=== PATIENT | male | born 1950 | race Caucasian/White ===

== ENCOUNTER 2019-08-30 00:28 | Emergency (ER) | payer MEDICARE ==
[2019-08-30] MEDS ORDERED: Ketorolac 30 MG/ML SDV IVPUSH ONE (00:52)
[2019-08-30] MEDS ORDERED: Sodium Chloride 0.9% 1,000 ML IV SCH (01:00)
[2019-08-30] MEDS ORDERED: Albuterol/Ipratropium 3.0-0.5 MG/3 ML Neb Soln NEB ONE (01:03)
--- NOTE | 2019-08-30 01:07 | EDM.PDOC ---
ED HPI GENERAL MEDICAL PROBLEM - General Chief Complaint: Chest Pain Stated Complaint: SNELLING AMBULANCE Time Seen by Provider: 08/30/19 00:39 Source of Information: Reports: Patient History Limitations: Reports: No Limitations - History of Present Illness INITIAL COMMENTS - FREE TEXT/NARRATIVE: This is a 68-year-old male. He awoke this morning early and when he took a deep breath he had sharp pain in his left chest. The deeper he would breathe seem like the worst it hurt. He was thinking he had a heart attack so he called the ambulance and was brought to the ER. He says since he got on the ambulance it is, eased up considerably but he still gets sharp pain at the very end of deep respirations. Denies any fever or chills. He did take 2 aspirin at home since he was thinking he might be having a heart attack. He has no history of cardiac disease. With this sharp chest pain he had no sweating no nausea and vomiting no shortness of breath and the pain is not radiated into his neck or his arm and stayed directly in the left anterior chest. He has been moving cattle recently but he denies having strained or stressed his chest wall. Recent swelling or redness of his legs. Chest Pain Score (Numeric/FACES): 5 - Related Data Allergies Allergy/AdvReac Type Severity Reaction Status Date / Time No Known Allergies Allergy Verified 08/30/19 00:38 Home Meds: Home Meds Albuterol [Proventil Neb Soln] 2.5 mg IH QID PRN 06/04/18 [History] Budesonide/Formoterol [Symbicort 160-4.5 MCG] 2 puff INH BID 06/04/18 [History] Montelukast [Singulair] 10 mg PO DAILY 06/04/18 [History] predniSONE 20 mg PO DAILY 08/30/19 [History] ED ROS GENERAL - Review of Systems Review Of Systems: See Below Constitutional: Denies: Fever, Chills HEENT: Reports: No Symptoms Respiratory: Reports: Shortness of Breath. Denies: Wheezing, Cough Cardiovascular: Reports: Chest Pain. Denies: Edema Endocrine: Reports: No Symptoms GI/Abdominal: Denies: Abdominal Pain, Diarrhea, Nausea, Vomiting : Reports: No Symptoms Musculoskeletal: Reports: No Symptoms Skin: Reports: No Symptoms Neurological: Reports: No Symptoms Psychiatric: Reports: No Symptoms Hematologic/Lymphatic: Reports: No Symptoms ED EXAM, GENERAL - Physical Exam Exam: See Below Exam Limited By: No Limitations General Appearance: Alert, WD/WN, No Apparent Distress Eye Exam: Bilateral Eye: Normal Inspection Ears: Normal External Exam Nose: Normal Inspection Throat/Mouth: Normal Inspection, Normal Lips, Normal Voice, No Airway Compromise Head: Normocephalic Neck: Supple Respiratory/Chest: No Respiratory Distress, Lungs Clear, Normal Breath Sounds, Other (Patient of his left anterior chest I cannot reproduce his sharp pain but I can put my finger which is just underneath his nipple on that left side where he describes the sharp pain when he breathes deep) Cardiovascular: Regular Rate, Rhythm, No Murmur GI/Abdominal: Soft, Non-Tender Back Exam: Full Range of Motion Extremities: Normal Inspection, Normal Range of Motion Neurological: Alert, Oriented Psychiatric: Normal Affect, Normal Mood Skin Exam: Warm, Dry EKG INTERPRETATION EKG Date: 08/30/19 Time: 00:35 EKG Interpretation Comments: EKG shows a normal sinus rhythm rate of 81, he does have a right bundle branch block noted but I do not see any acute ST or T wave changes or obvious ischemia Course - Vital Signs Last Recorded V/S: Last Vital Signs Temp 98.6 F 08/30/19 00:34 Pulse 86 08/30/19 00:34 Resp 16 08/30/19 00:34 BP 156/103 H 08/30/19 00:34 Pulse Ox 96 08/30/19 01:18 - Orders/Labs/Meds Orders: Active Orders 24 hr Category Date Time Status EKG 12 Lead [EKG Documentation Completion] [RC] STAT Care 08/30/19 00:46 Active RT Aerosol Therapy [RC] ASDIRECTED Care 08/30/19 01:03 Active Chest 2V [CR] Stat Exams 08/30/19 00:46 Taken Sodium Chloride 0.9% [Normal Saline] 1,000 ml Med 08/30/19 01:00 Active IV ASDIRECTED Medication Orders Sodium Chloride (Normal Saline) 1,000 mls @ 500 mls/hr IV ASDIRECTED MARLENA Last Admin: 08/30/19 01:17 Dose: 500 mls/hr Labs: Laboratory Tests 08/30/19 08/30/19 08/30/19 Range/Units 01:15 01:15 01:15 WBC 8.12 (4.23-9.07) K/mm3 RBC 4.69 (4.63-6.08) M/mm3 Hgb 13.5 L (13.7-17.5) gm/dl Hct 41.4 (40.1-51.0) % MCV 88.3 (79.0-92.2) fl MCH 28.8 (25.7-32.2) pg MCHC 32.6 (32.2-35.5) g/dl RDW Std Deviation 44.0 H (35.1-43.9) fL Plt Count 311 (163-337) K/mm3 MPV 9.9 (9.4-12.3) fl Neut % (Auto) 53.7 (34.0-67.9) % Lymph % (Auto) 28.8 (21.8-53.1) % [place] % (Auto) 15.5 H (5.3-12.2) % Eos % (Auto) 1.6 (0.8-7.0) Baso % (Auto) 0.2 (0.1-1.2) % Neut # (Auto) 4.35 (1.78-5.38) K/mm3 Lymph # (Auto) 2.34 (1.32-3.57) K/mm3 [place] # (Auto) 1.26 H (0.30-0.82) K/mm3 Eos # (Auto) 0.13 (0.04-0.54) K/mm3 Baso # (Auto) 0.02 (0.01-0.08) K/mm3 Manual Slide Review Abnormal smear D-Dimer, Quantitative 0.47 (0.19-0.50) mg/L Sodium 142 (136-145) mEq/L Potassium 4.5 (3.5-5.1) mEq/L Chloride 100 (98-107) mEq/L Carbon Dioxide 33 H (21-32) mEq/L Anion Gap 13.5 (5-15) BUN 20 H (7-18) mg/dL Creatinine 1.2 (0.7-1.3) mg/dL Est Cr Clr Drug Dosing 57.79 mL/min Estimated GFR (MDRD) > 60 (>60) mL/min BUN/Creatinine Ratio 16.7 (14-18) Glucose 402 H (80-115) mg/dL Calcium 9.5 (8.5-10.1) mg/dL Total Bilirubin 0.4 (0.2-1.0) mg/dL AST 24 (15-37) U/L ALT 50 (16-63) U/L Alkaline Phosphatase 71 (46-116) U/L Troponin I < 0.017 (0.00-0.056) ng/mL Total Protein 7.4 (6.4-8.2) g/dl Albumin 3.4 (3.4-5.0) g/dl Globulin 4.0 gm/dL Albumin/Globulin Ratio 0.9 L (1-2) 08/30/19 Range/Units 03:20 WBC (4.23-9.07) K/mm3 RBC (4.63-6.08) M/mm3 Hgb (13.7-17.5) gm/dl Hct (40.1-51.0) % MCV (79.0-92.2) fl MCH (25.7-32.2) pg MCHC (32.2-35.5) g/dl RDW Std Deviation (35.1-43.9) fL Plt Count (163-337) K/mm3 MPV (9.4-12.3) fl Neut % (Auto) (34.0-67.9) % Lymph % (Auto) (21.8-53.1) % [place] % (Auto) (5.3-12.2) % Eos % (Auto) (0.8-7.0) Baso % (Auto) (0.1-1.2) % Neut # (Auto) (1.78-5.38) K/mm3 Lymph # (Auto) (1.32-3.57) K/mm3 [place] # (Auto) (0.30-0.82) K/mm3 Eos # (Auto) (0.04-0.54) K/mm3 Baso # (Auto) (0.01-0.08) K/mm3 Manual Slide Review D-Dimer, Quantitative (0.19-0.50) mg/L Sodium (136-145) mEq/L Potassium (3.5-5.1) mEq/L Chloride (98-107) mEq/L Carbon Dioxide (21-32) mEq/L Anion Gap (5-15) BUN (7-18) mg/dL Creatinine (0.7-1.3) mg/dL Est Cr Clr Drug Dosing mL/min Estimated GFR (MDRD) (>60) mL/min BUN/Creatinine Ratio (14-18) Glucose (80-115) mg/dL Calcium (8.5-10.1) mg/dL Total Bilirubin (0.2-1.0) mg/dL AST (15-37) U/L ALT (16-63) U/L Alkaline Phosphatase (46-116) U/L Troponin I < 0.017 (0.00-0.056) ng/mL Total Protein (6.4-8.2) g/dl Albumin (3.4-5.0) g/dl Globulin gm/dL Albumin/Globulin Ratio (1-2) Meds: Medications Generic Name Dose Route Start Last Admin Trade Name Freq PRN Reason Stop Dose Admin Sodium Chloride 1,000 mls @ 500 mls/hr 08/30/19 01:00 08/30/19 01:17 Normal Saline IV 500 mls/hr ASDIRECTED MARLENA Administration Discontinued Medications Generic Name Dose Route Start Last Admin Trade Name Freq PRN Reason Stop Dose Admin Albuterol/Ipratropium 3 ml 08/30/19 01:03 08/30/19 01:13 Duoneb 3.0-0.5 Mg/3 Ml NEB 08/30/19 01:04 3 ml ONETIME ONE Administration Ketorolac Tromethamine 30 mg 08/30/19 00:52 08/30/19 01:17 Toradol IVPUSH 08/30/19 00:53 30 mg ONETIME ONE Administration - Radiology Interpretation Free Text/Narrative:: Straight does not show any acute findings. There is a shadow in the left hilum but I am not sure what it represents but I do not believe it is anything acute his aortic knob is visualized and he does not have a widened mediastinum - Re-Assessments/Exams Free Text/Narrative Re-Assessment/Exam: 08/30/19 04:02 Spoke to the patient regarding his lab work and the 2 troponins that were normal. He states that since he has been sleeping that sharp pain has resolved and he does not have it anymore. I encouraged him to follow-up with his family doctor if any further recurrence of the sharp pain. I also went over the fact that a checked him for a pulmonary embolus and it was negative. Departure - Departure Time of Disposition: 04:03 Disposition: Home, Self-Care 01 Condition: Good Clinical Impression: Pleuritic chest pain Instructions: Chest Wall Pain Referrals: Ronaldo Mcbride Jr, MD [Primary Care Provider] - Forms: ED Department Discharge Additional Instructions: Continue with normal but nonstrenuous activity for the next 48 hours, follow-up with your family doctor this coming week for recheck, see your family doctor sooner if you start having the sharp chest pain again, return to the ER if needed Sepsis Event Note - Evaluation Sepsis Screening Result: No Definite Risk - Focused Exam Vital Signs: Vital Signs Temp Pulse Resp BP Pulse Ox Pulse Ox 08/30/19 01:18 96 08/30/19 00:34 98.6 F 86 16 156/103 H 97 Date Exam was Performed: 08/30/19 Time Exam was Performed: 04:02 - My Orders Last 24 Hours: My Active Orders 08/30/19 00:46 EKG 12 Lead [EKG Documentation Completion] [RC] STAT Chest 2V [CR] Stat 08/30/19 01:00 Sodium Chloride 0.9% [Normal Saline] 1,000 ml IV ASDIRECTED 08/30/19 01:03 RT Aerosol Therapy [RC] ASDIRECTED - Assessment/Plan Last 24 Hours: My Active Orders 08/30/19 00:46 EKG 12 Lead [EKG Documentation Completion] [RC] STAT Chest 2V [CR] Stat 08/30/19 01:00 Sodium Chloride 0.9% [Normal Saline] 1,000 ml IV ASDIRECTED 08/30/19 01:03 RT Aerosol Therapy [RC] ASDIRECTED
--- NOTE | 2019-08-31 09:17 | CR ---
Chest: Two views of the chest were obtained. Comparison: No prior chest imaging is available. Heart size and mediastinum are normal. Lungs are hyperinflated compatible with emphysematous change. No acute parenchymal type change is seen. Bony structures are within normal limits for the patient's age. Impression: 1. Emphysematous change. 2. Nothing acute is suspected on two-view chest x-ray. Diagnostic code #2 This report was dictated in [place] Standard Time
== END 2019-08-30 05:55 | disposition home or self-care (01) ==
LOC: JD.ED 00:28 → SUPCPDRO 00:28 → JD.ED 05:55
DX: R07.81 Pleurodynia (principal); J43.9 Emphysema, unspecified; Z79.899 Other long term (current) drug therapy; Z79.51 Long term (current) use of inhaled steroids; Z79.52 Long term (current) use of systemic steroids
CPT/HCPCS: 36415; 71046; 71046-26; 80053; 84484; 85025; 85379; 93005; 94640; 96361; 96374; 99285-25; J1885; J7030; J7620-GY

== ENCOUNTER 2025-03-08 17:34 | Inpatient (IN) | payer MEDICARE, OTHER ==
[2025-03-08] MEDS: Ondansetron 4 MG/2 ML SDV IVPUSH ONE (17:54)
[2025-03-08] MEDS: Sodium Chloride 0.9% 10 ML Syringe FLUSH PRN (17:54)
[2025-03-08] MEDS: methylPREDNISolone Sodium Succinate 125 MG/2 ML SDV IVPUSH ONE (17:54)
[2025-03-08 17:55] LABS: BASOPHILS ABSOLUTE AUTO 0.1 K/mm3 (0.0-0.2); BASOPHILS PERCENT AUTO 0.7 % (0.0-1.0); EOSINOPHILS ABSOLUTE AUTO 0.2 K/mm3 (0.0-0.4); EOSINOPHILS PERCENT AUTO 1.7 % (0.0-6.0); IMMATURE GRAN ABSOLUTE AUTO 0.03 K/mm3 (0.00-0.05); IMMATURE GRAN PERCENT AUTO 0.3 % (0.0-0.4); LYMPHOCYTES ABSOLUTE AUTO 2.6 K/mm3 (1.0-4.8); LYMPHOCYTES PERCENT AUTO 30.3 % (24.0-44.0); MEAN PLATELET VOLUME 10.5 fl (9.4-12.4); MONOCYTES ABSOLUTE AUTO 1.1 K/mm3 (0.0-0.8); MONOCYTES PERCENT AUTO 12.6 % (0.0-8.0); NEUTROPHILS ABSOLUTE AUTO 4.7 K/mm3 (1.8-7.7); NEUTROPHILS PERCENT AUTO 54.4 % (41.0-71.0); NRBC ABSOLUTE 0.00 (0.00-0.02); NRBC PERCENT 0.0 % (0.0-0.2); PLATELET COUNT,PLT 248 K/mm3 (150-400); RED BLOOD CELL COUNT 4.43 M/mm3 (4.52-5.90); WHITE BLOOD CELL COUNT,WBC 8.64 K/mm3 (3.9-11.3)
[2025-03-08 18:28] LABS: A/G RATIO 0.8 (1-2); ALANINE AMINOTRANSFERASE,ALT 31.0 U/L (16-63); ASPARTATE AMNIOTRANSFERASE,AST 25.0 U/L (15-37); BILIRUBIN TOTAL 0.6 mg/dL (0.2-1.0); BLOOD UREA NITROGEN,BUN 24.0 mg/dL (7-18); CARBON DIOXIDE,CO2 33.0 mEq/L (21-32); CHLORIDE,CL 101.0 mEq/L (98-107); CREATININE 1.4 mg/dL (0.7-1.3); EST CRCL DRUG DOSING (CG) 48.52 mL/min; ESTIMATED GFR 53.0 mL/min (>60); GLUCOSE RANDOM 167.0 mg/dL (70-99); POTASSIUM,K 4.9 mEq/L (3.5-5.1); PROTEIN TOTAL,TP 7.7 g/dl (6.4-8.2); SODIUM,NA 143.0 mEq/L (136-145)
[2025-03-08 18:30] LABS: TROPONIN I HIGH SENSITIVITY 730.0 pg/mL (<=76)
[2025-03-08 18:35] LABS: INR 1.08
[2025-03-08 18:37] LABS: PTT,PARTIAL THROMBOPLSTIN TIME 24.9 SECONDS (21.7-31.4)
[2025-03-08] MEDS ORDERED: Iopamidol 612 MG/ML 100 ML Bottle IVPUSH ONE (19:00)
[2025-03-08] MEDS ORDERED: Iopamidol 612 MG/ML 30 ML SDV IVPUSH ONE (19:00)
[2025-03-08] MEDS: diphenhydrAMINE 50 MG/ML SDV IVPUSH ONE (19:15)
[2025-03-08 21:00] LABS: PCO2 ARTERIAL 72.0 mmHg (35.0-45.0); PO2 ARTERIAL 104.0 mmHg (80.0-100.0)
[2025-03-08 21:01] LABS: BASE EXCESS ARTERIAL 7.8 (-2-2.0); BICARBONATE,ARTERIAL 36.3 meq/L (22.0-26.0); O2 SATURATION ARTERIAL 98.6 % (96.0-97.0)
[2025-03-08] MEDS: Iopamidol 755 Mg/ML 100 ML Bottle IVPUSH ONE (23:21)
[2025-03-09 06:59] LABS: BASE EXCESS ARTERIAL 6.8 (-2-2.0); BICARBONATE,ARTERIAL 35.6 meq/L (22.0-26.0); O2 SATURATION ARTERIAL 98.7 % (96.0-97.0); PCO2 ARTERIAL 74.0 mmHg (35.0-45.0); PO2 ARTERIAL 111.0 mmHg (80.0-100.0)
[2025-03-09 08:15] LABS: BASOPHILS ABSOLUTE AUTO 0.0 K/mm3 (0.0-0.2); BASOPHILS PERCENT AUTO 0.0 % (0.0-1.0); EOSINOPHILS ABSOLUTE AUTO 0.0 K/mm3 (0.0-0.4); EOSINOPHILS PERCENT AUTO 0.0 % (0.0-6.0); IMMATURE GRAN ABSOLUTE AUTO 0.02 K/mm3 (0.00-0.05); IMMATURE GRAN PERCENT AUTO 0.5 % (0.0-0.4); LYMPHOCYTES ABSOLUTE AUTO 0.6 K/mm3 (1.0-4.8); LYMPHOCYTES PERCENT AUTO 14.0 % (24.0-44.0); MEAN PLATELET VOLUME 10.2 fl (9.4-12.4); MONOCYTES ABSOLUTE AUTO 0.2 K/mm3 (0.0-0.8); MONOCYTES PERCENT AUTO 4.7 % (0.0-8.0); NEUTROPHILS ABSOLUTE AUTO 3.2 K/mm3 (1.8-7.7); NEUTROPHILS PERCENT AUTO 80.8 % (41.0-71.0); NRBC ABSOLUTE 0.00 (0.00-0.02); NRBC PERCENT 0.0 % (0.0-0.2); PLATELET COUNT,PLT 211 K/mm3 (150-400); RED BLOOD CELL COUNT 4.08 M/mm3 (4.52-5.90); WHITE BLOOD CELL COUNT,WBC 4.01 K/mm3 (3.9-11.3)
[2025-03-09 08:38] LABS: A/G RATIO 0.7 (1-2); ALANINE AMINOTRANSFERASE,ALT 27.0 U/L (16-63); ASPARTATE AMNIOTRANSFERASE,AST 20.0 U/L (15-37); BILIRUBIN TOTAL 0.6 mg/dL (0.2-1.0); BLOOD UREA NITROGEN,BUN 23.0 mg/dL (7-18); CARBON DIOXIDE,CO2 37.0 mEq/L (21-32); CHLORIDE,CL 100.0 mEq/L (98-107); CREATININE 1.0 mg/dL (0.7-1.3); EST CRCL DRUG DOSING (CG) 67.93 mL/min; ESTIMATED GFR 79.0 mL/min (>60); GLUCOSE RANDOM 184.0 mg/dL (70-99); PHOSPHORUS 4.9 mg/dL (2.6-4.7); POTASSIUM,K 5.4 mEq/L (3.5-5.1); PROTEIN TOTAL,TP 7.3 g/dl (6.4-8.2); SODIUM,NA 141.0 mEq/L (136-145)
[2025-03-09 08:44] LABS: TROPONIN I HIGH SENSITIVITY 318.0 pg/mL (<=76)
[2025-03-09 09:42] LABS: BASE EXCESS ARTERIAL 5.6 (-2-2.0); BICARBONATE,ARTERIAL 33.7 meq/L (22.0-26.0); O2 SATURATION ARTERIAL 97.6 % (96.0-97.0); PCO2 ARTERIAL 67.0 mmHg (35.0-45.0); PO2 ARTERIAL 104.0 mmHg (80.0-100.0)
[2025-03-09] MEDS ORDERED: 50% Dextrose in Water 50 ML Syringe IVPUSH PRN (14:50)
[2025-03-09] MEDS ORDERED: LORazepam 2 MG/ML SDV IVPUSH PRN (14:51)
[2025-03-09] MEDS ORDERED: Sennosides/Docusate Sodium 50-8.6 MG Tab PO PRN (14:57)
[2025-03-09] MEDS: Furosemide 40 MG/4 ML VIAL IVPUSH ONE (15:34)
[2025-03-09] MEDS: methylPREDNISolone Sodium Succinate 125 MG/2 ML SDV IVPUSH SCH (15:34)
[2025-03-09] MEDS: Calcium Gluconate 10% 1 GM/10 ML SDV IVPUSH ONE (15:34)
[2025-03-09] MEDS: Magnesium Sulfat/D5W 1GM/100ML 1 GM in Premix Bag 1 BAG IV ONE (15:35)
[2025-03-09] MEDS: Insulin Regular, Human 100 Units/ML 10 ML Vial IV ONE (15:50)
[2025-03-09] MEDS: 50% Dextrose in Water 50 ML Syringe IVPUSH ONE (15:50)
[2025-03-09] MEDS: Tiotropium BR/Olodaterol HCL 4 GM Inhalation Spray 2.5mcg/1 dose; 10 doses INH SCH (16:06)
[2025-03-09] MEDS: Ondansetron 4 MG Tab.DIS PO PRN (16:18)
[2025-03-09] MEDS: Insulin Lispro 100 Unit/ML 3 ML KwikPen SUBCUT SCH (17:16)
[2025-03-10 05:20] LABS: BLOOD UREA NITROGEN,BUN 29.0 mg/dL (7-18); CARBON DIOXIDE,CO2 39.0 mEq/L (21-32); CHLORIDE,CL 98.0 mEq/L (98-107); CREATININE 1.1 mg/dL (0.7-1.3); EST CRCL DRUG DOSING (CG) 61.76 mL/min; ESTIMATED GFR 71.0 mL/min (>60); GLUCOSE RANDOM 308.0 mg/dL (70-99); PHOSPHORUS 3.8 mg/dL (2.6-4.7); POTASSIUM,K 4.8 mEq/L (3.5-5.1); SODIUM,NA 140.0 mEq/L (136-145)
[2025-03-10] MEDS: methylPREDNISolone Sodium Succinate 40 MG/1 ML SDV IVPUSH SCH (09:10)
[2025-03-10] MEDS: Furosemide 40 MG/4 ML VIAL IVPUSH ONE (16:05)
[2025-03-10] MEDS: Insulin Glargine,Human Rec. Analog 100 Units/ML 3 ML Pen SUBCUT SCH (17:58)
[2025-03-11 05:02] LABS: BLOOD UREA NITROGEN,BUN 32.0 mg/dL (7-18); CARBON DIOXIDE,CO2 39.0 mEq/L (21-32); CHLORIDE,CL 99.0 mEq/L (98-107); CREATININE 1.1 mg/dL (0.7-1.3); EST CRCL DRUG DOSING (CG) 61.76 mL/min; ESTIMATED GFR 71.0 mL/min (>60); GLUCOSE RANDOM 310.0 mg/dL (70-99); POTASSIUM,K 4.5 mEq/L (3.5-5.1); SODIUM,NA 140.0 mEq/L (136-145)
[2025-03-11 18:04] LABS: O2 SATURATION VENOUS 50.7; PCO2 VENOUS 99.0 mmHg (41-51); PH,VENOUS 7.33 (7.30-7.40); PO2 VENOUS 30.0 mmHG (40-80)
[2025-03-11 18:05] LABS: BASE EXCESS VENOUS 21.0 (-4.0-2.0); BICARBONATE,VENOUS 52.2 meq/L (22-26)
[2025-03-12] MEDS: Insulin Glargine,Human Rec. Analog 100 Units/ML 3 ML Pen SUBCUT SCH (09:33)
== END 2025-03-13 14:52 | disposition home or self-care (01) | DRG 189 ==
LOC: JD.ED 17:34 → JD.ICU 03-09 10:20 → JD.MS 03-12 21:00
PROVIDERS: ADMIT Student in an Organized Health Care Education/Training Program; ATTEND Family Medicine
PROC: 4A133R1 Monitoring of Arterial Saturation, Peripheral, Percutaneous Approach (ICD-10-PCS; 2025-03-08)
PROC: 5A09357 Assistance with Respiratory Ventilation, Less than 24 Consecutive Hours, Continuous Positive Airway Pressure (ICD-10-PCS; principal; 2025-03-09)
DX: J96.02 Acute respiratory failure with hypercapnia (principal); J96.21 Acute and chronic respiratory failure with hypoxia; I21.A1 Myocardial infarction type 2; J44.1 Chronic obstructive pulmonary disease with (acute) exacerbation; E87.20 Acidosis, unspecified; J98.11 Atelectasis; J96.22 Acute and chronic respiratory failure with hypercapnia; E11.9 Type 2 diabetes mellitus without complications; I50.9 Heart failure, unspecified; E87.5 Hyperkalemia; E83.42 Hypomagnesemia; J43.9 Emphysema, unspecified; Z79.51 Long term (current) use of inhaled steroids; Z79.52 Long term (current) use of systemic steroids; Z79.899 Other long term (current) drug therapy; Z99.81 Dependence on supplemental oxygen; Z87.891 Personal history of nicotine dependence; Z86.16 Personal history of COVID-19
CPT/HCPCS: 36415 ×2; 36600 ×3; 70450; 71045; 71275; 80053 ×2; 82803 ×3; 82947 ×2; 83605 ×2; 83735 ×2; 83880; 84100; 84484 ×4; 85025 ×2; 85379; 85610; 85730; 86140; 93005; 94640 ×2; 94660; 96361; 96365; 96366 ×2; 96375; 99285; A9270 ×2; J1200; J2405; J2765; J2919; J3475; J7030; Q9967; 80048; 93010; 93970; 93970-26; 94761; 94762; 97112-GP; 97116-GP; 97162-GP; 97530-GP; J0456; J0612; J0696; J1650; J1815-GY; J1938; J7050; J7512